=== PATIENT | female | born 1955 | race Caucasian/White ===

== ENCOUNTER 2023-10-26 10:35 | Emergency (ER) | payer OTHER ==
[2023-10-26] MEDS ORDERED: SODIUM CHLORIDE 1,000 ML IV SCH (10:45)
[2023-10-26 11:05] VITALS: BP 120/60; PULSE 58; RESP 15; TEMP 99.4; BMI 20.8
[2023-10-26 11:42] LABS: HEMATOCRIT 43.2 % (32.4-45.2); HEMOGLOBIN 14.8 G/dL (10.7-15.3); MCH 30.3 pg (25.7-33.7); MCHC 34.3 g/dl (32.0-36.0); MEAN CELL VOLUME 88.5 fl (80-96); MEAN PLT VOLUME 8.5 fl (7.5-11.1); PLATELET COUNT 148.7 10^3/uL (134-434); RBC 4.88 10^6/uL (3.60-5.2); RDW 14.4 % (11.6-15.6); WHITE BLOOD COUNT 3.4 10^3/uL (4.0-10.8)
[2023-10-26 11:44] LABS: PLATELET ESTIMATE ADEQUATE
[2023-10-26] MEDS ORDERED: DIPHTH,PERTUSS(ACELL),TET 0.5 ML DISP.SYRIN IM ONE ×2 (11:46→11:50)
[2023-10-26 11:51] LABS: ALBUMIN 4.2 g/dl (3.4-5.0); BILIRUBIN,TOTAL 0.8 mg/dl (0.2-1); CALCIUM 8.7 mg/dl (8.5-10.1); CREATININE 0.7 mg/dl (0.6-1.3); POTASSIUM 4.1 mmol/L (3.5-5.1); TOT PROT 6.5 g/dl (6.4-8.2)
== END 2023-10-26 14:07 | disposition home or self-care (01) ==
LOC: FER 10:35
PROC: 0HQ0XZZ Repair Scalp Skin, External Approach (ICD-10-PCS; principal; 2023-10-26)
PROC: 3E0234Z Introduction of Serum, Toxoid and Vaccine into Muscle, Percutaneous Approach (ICD-10-PCS; 2023-10-26)
DX: S01.01XA Laceration without foreign body of scalp, initial encounter (principal); E87.1 Hypo-osmolality and hyponatremia; R51.9 Headache, unspecified; M25.571 Pain in right ankle and joints of right foot; R53.81 Other malaise; W19.XXXA Unspecified fall, initial encounter; U07.1 COVID-19
CPT/HCPCS: 0241U-QW; 12001-25; 36415; 70450-TC; 73610-TC-RT-FY; 80053; 84484; 85027; 90471; 90715; 93005; 99285-25

== ENCOUNTER 2023-11-02 09:17 | Emergency (ER) | payer OTHER ==
[2023-11-02 09:27] VITALS: BP 121/68; PULSE 71; RESP 18; TEMP 97.8; BMI 20.8
== END 2023-11-02 09:43 | disposition home or self-care (01) ==
LOC: FER 09:17
DX: Z48.02 Encounter for removal of sutures (principal)
CPT/HCPCS: 99281-25